=== PATIENT | male | born 1960 | race Caucasian/White ===

== ENCOUNTER 2018-05-28 10:32 | Day surgery (SDC) | payer OTHER ==
[2018-05-27 14:59] VITALS: BMI 34.7
[2018-05-28 12:27] VITALS: TEMP 98.2
[2018-05-28 13:33] VITALS: BP 110/62; PULSE 63
--- NOTE | 2018-05-29 16:58 | PATH ---
Surgical Pathology Report Patient Name: LOREN ROJAS [facility]. Rec. #: [id number] /Age/Gender: 1960 (Age: 57) / M Account: [id number] Location: [facility]-ENDOSCOPY Taken: 05/28/2018 Received: 05/28/2018 Reported: 05/29/2018 Physicians: Wero Yusuf M.D. Specimen(s) Received POLYP RECTOSIGMOID Clinical History Personal history of colon polyps Postoperative diagnosis: Colon polyps Final Diagnosis POLYP FROM RECTOSIGMOID, POLYPECTOMY: HYPERPLASTIC POLYP. Electronically Signed Swapnil Batista M.D. Gross Description Received in formalin, labeled "polyp from rectosigmoid" are 2 rosales, irregular portions of soft tissue measuring 0.3 and 0.4 cm. in greatest dimension. The specimens are submitted in toto in one cassette. /05/28/201805/28/2018
== END 2018-05-28 13:35 | disposition home or self-care (01) ==
LOC: JASU-ENDO 10:32
PROVIDERS: ATTEND Internal Medicine Gastroenterology
PROC: 0DBN8ZX Excision of Sigmoid Colon, Via Natural or Artificial Opening Endoscopic, Diagnostic (ICD-10-PCS; principal; 2018-05-28 11:15)
DX: Z12.11 Encounter for screening for malignant neoplasm of colon (principal); Z86.010 Personal history of colon polyps
CPT/HCPCS: 88305-TC

== ENCOUNTER 2020-03-17 16:02 | Inpatient (IN) | payer OTHER ==
[2020-03-17] MEDS ORDERED: HEPARIN NA (PORCINE) 5,000 UNITS/ML 1ML VIAL SQ ONE (17:20)
[2020-03-17] MEDS ORDERED: HEPARIN NA (PORCINE) 5,000 UNITS/ML 1ML VIAL ONE (18:12)
[2020-03-17] MEDS ORDERED: ENOXAPARIN NA (PORCINE) 100 MG/1 ML DISP.SYRIN SQ ONE (18:32)
[2020-03-17 19:47] LABS: BASO % 0.5 % (0-2.0); HEMATOCRIT 42.5 % (35.4-49); HEMOGLOBIN 14.2 GM/dL (11.7-16.9); MCH 34.9 pg (25.7-33.7); MCHC 33.3 g/dl (32.0-35.9); MEAN CELL VOLUME 104.7 fl (80-96); MEAN PLT VOLUME 9.7 fl (7.5-11.1); MONO % 7.5 % (3.8-10.2); PLATELET COUNT 180 K/MM3 (134-434); RBC 4.06 M/mm3 (4.00-5.60); RDW 14.6 % (11.9-15.9); WHITE BLOOD COUNT 10.9 K/mm3 (4.0-10.0)
[2020-03-17 19:56] LABS: INR 1.44 (0.83-1.09); PROTHROMBIN TIME (PATIENT) 17.5 SEC (9.7-13.0)
[2020-03-17 19:59] LABS: ACTIVATED PTT 39.1 SECONDS (25.2-36.5)
[2020-03-17 20:08] LABS: CALCIUM 8.8 mg/dL (8.5-10.1); POTASSIUM 5.6 mmol/L (3.5-5.1)
[2020-03-17 20:09] LABS: ALBUMIN 3.9 g/dl (3.4-5.0); BLOOD UREA NITROGEN 18.9 mg/dL (7-18)
[2020-03-17 20:12] LABS: CREATININE 0.9 mg/dL (0.55-1.3)
[2020-03-17 20:14] LABS: BILIRUBIN,TOTAL 0.3 mg/dL (0.2-1); TOT PROT 7.1 g/dl (6.4-8.2)
[2020-03-17] MEDS ORDERED: ALBUTEROL SO4 0.083% IH SOL 2.5 MG/3 ML VIAL.NEB. NEB PRN (23:35)
[2020-03-17] MEDS ORDERED: AMMONIUM LACTATE 12% LOTION 225 GM BOTTLE TP SCH (23:45)
[2020-03-17] MEDS ORDERED: PATIENT'S OWN MEDICATION (NON-FORMULARY) (Clobetasol Propionate/Emoll [Clobetasol Emollien TP SCH (23:45)
[2020-03-18] MEDS: ENOXAPARIN NA (PORCINE) 100 MG/1 ML DISP.SYRIN SQ SCH ×3 (01:26→22:59)
[2020-03-18] MEDS ORDERED: oxyCODONE HCL 5 MG TABLET PO SCH (03:00)
[2020-03-18] MEDS: oxyCODONE HCL 5 MG TABLET PO PRN ×2 (03:47→15:56)
[2020-03-18 04:06] VITALS: BMI 34.4
[2020-03-18] MEDS ORDERED: AMMONIUM LACTATE 12% LOTION 225 GM BOTTLE TP SCH (06:00)
[2020-03-18] MEDS ORDERED: OXYCODONE HCL 30 MG PO SCH (06:00)
[2020-03-18] MEDS: INSULIN SLIDING SCALE (NOVOLOG) 1 VIAL SQ SCH ×4 (07:18→22:58)
[2020-03-18 08:47] LABS: INR 1.17 (0.83-1.09); PROTHROMBIN TIME (PATIENT) 14.1 SEC (9.7-13.0)
[2020-03-18 08:48] LABS: ACTIVATED PTT 42.8 SECONDS (25.2-36.5)
[2020-03-18 08:54] LABS: HEMATOCRIT 43.6 % (35.4-49); HEMOGLOBIN 14.8 GM/dL (11.7-16.9); MCH 35.6 pg (25.7-33.7); MEAN CELL VOLUME 104.7 fl (80-96); PLATELET COUNT 178 K/MM3 (134-434); RBC 4.16 M/mm3 (4.00-5.60); RDW 14.8 % (11.9-15.9); WHITE BLOOD COUNT 8.7 K/mm3 (4.0-10.0)
[2020-03-18 09:35] LABS: ALBUMIN 3.8 g/dl (3.4-5.0); BILIRUBIN,TOTAL 0.5 mg/dL (0.2-1); BLOOD UREA NITROGEN 15.2 mg/dL (7-18); CALCIUM 8.6 mg/dL (8.5-10.1); CREATININE 0.8 mg/dL (0.55-1.3); MAGNESIUM 2.6 mg/dL (1.8-2.4); PHOSPHOROUS 4.5 mg/dL (2.5-4.9); POTASSIUM 4.7 mmol/L (3.5-5.1)
[2020-03-18] MEDS ORDERED: METHADONE HCL 10 MG TABLET (FOR DETOX USE ONLY) PO SCH (10:00)
[2020-03-18] MEDS ORDERED: ENOXAPARIN NA (PORCINE) 100 MG/1 ML DISP.SYRIN SQ SCH (10:00)
[2020-03-18] MEDS ORDERED: SERTRALINE HCL 50 MG TABLET (FP) PO SCH (10:00)
[2020-03-18] MEDS ORDERED: PATIENT'S OWN MEDICATION (NON-FORMULARY) (Albuterol Sulfate [Proair Respiclick] 90 MCG Aer IH SCH (10:00)
[2020-03-18] MEDS ORDERED: METHADONE HCL 10 MG TABLET ONE (11:19)
[2020-03-18] MEDS ORDERED: PT OWN MED DRAWER 7, Y5N ONE ×2 (11:20→11:24)
[2020-03-18] MEDS ORDERED: METHADONE HCL 40 MG DISPERSABLE TABLET ONE (11:20)
[2020-03-18] MEDS: METHADONE 40 MG, METHADONE 30 MG PO SCH (11:46)
[2020-03-18] MEDS: AMMONIUM LACTATE 12% LOTION 225 GM BOTTLE TP SCH ×2 (11:47→22:58)
[2020-03-18] MEDS: SERTRALINE HCL 50 MG TABLET (FP) PO SCH (11:48)
[2020-03-18] MEDS: CHOLECALCIFEROL (VIT D3) 400 UNIT (10 MCG) TABLET PO SCH (11:48)
[2020-03-18] MEDS: BICTEGRAV/EMTRICIT/TENOFOV (BIKTARVY) 50-200-25 MG TABLET PO SCH (15:53)
[2020-03-18] MEDS ORDERED: ATORVASTATIN CA 20 MG TABLET (FP) PO SCH (22:00)
[2020-03-19] MEDS: oxyCODONE HCL 5 MG TABLET PO PRN (01:17)
[2020-03-19] MEDS ORDERED: METHADONE HCL 10 MG TABLET ONE (06:36)
[2020-03-19] MEDS ORDERED: METHADONE HCL 40 MG DISPERSABLE TABLET ONE (06:36)
[2020-03-19] MEDS: METHADONE 40 MG, METHADONE 30 MG PO SCH (06:38)
[2020-03-19] MEDS: INSULIN SLIDING SCALE (NOVOLOG) 1 VIAL SQ SCH (06:41)
[2020-03-19] MEDS ORDERED: PT OWN MED DRAWER 7, Y5N ONE (09:31)
[2020-03-19] MEDS: SERTRALINE HCL 50 MG TABLET (FP) PO SCH (09:32)
[2020-03-19] MEDS: CHOLECALCIFEROL (VIT D3) 400 UNIT (10 MCG) TABLET PO SCH (09:33)
[2020-03-19] MEDS: BICTEGRAV/EMTRICIT/TENOFOV (BIKTARVY) 50-200-25 MG TABLET PO SCH (09:33)
[2020-03-19 09:36] LABS: BASO % 0.7 % (0-2.0); EOS % 1.8 % (0-4.5); HEMATOCRIT 43.2 % (35.4-49); HEMOGLOBIN 14.5 GM/dL (11.7-16.9); LYMPH % 12.1 % (8-40); MCH 34.9 pg (25.7-33.7); MCHC 33.6 g/dl (32.0-35.9); MEAN CELL VOLUME 103.9 fl (80-96); MEAN PLT VOLUME 9.4 fl (7.5-11.1); MONO % 8.2 % (3.8-10.2); NEUT % 77.2 % (42.8-82.8); PLATELET COUNT 177 K/MM3 (134-434); RBC 4.16 M/mm3 (4.00-5.60); RDW 14.6 % (11.9-15.9); WHITE BLOOD COUNT 9.3 K/mm3 (4.0-10.0)
[2020-03-19 09:54] VITALS: BP 132/73; PULSE 76; TEMP 98.9
[2020-03-19 10:00] LABS: POTASSIUM 4.2 mmol/L (3.5-5.1)
[2020-03-19 10:08] LABS: ALBUMIN 3.7 g/dl (3.4-5.0); BLOOD UREA NITROGEN 15.4 mg/dL (7-18); CALCIUM 8.4 mg/dL (8.5-10.1)
[2020-03-19 10:09] LABS: MAGNESIUM 2.3 mg/dL (1.8-2.4)
[2020-03-19 10:11] LABS: CREATININE 0.7 mg/dL (0.55-1.3); PHOSPHOROUS 3.9 mg/dL (2.5-4.9)
[2020-03-19 10:13] LABS: BILIRUBIN,TOTAL 0.7 mg/dL (0.2-1); TOT PROT 6.8 g/dl (6.4-8.2)
[2020-03-19] MEDS: ENOXAPARIN NA (PORCINE) 100 MG/1 ML DISP.SYRIN SQ SCH (13:54)
[2020-03-19] MEDS: AMMONIUM LACTATE 12% LOTION 225 GM BOTTLE TP SCH (13:54)
== END 2020-03-19 14:31 | disposition home or self-care (01) | DRG 301 ==
LOC: JER 16:02 → JERBED 18:28 → J6S 03-18 00:24
PROVIDERS: ADMIT Internal Medicine; ATTEND Student in an Organized Health Care Education/Training Program
DX: I82.432 Acute embolism and thrombosis of left popliteal vein (principal); Z21 Asymptomatic human immunodeficiency virus [HIV] infection status; F11.90 Opioid use, unspecified, uncomplicated; I25.10 Atherosclerotic heart disease of native coronary artery without angina pectoris; G47.33 Obstructive sleep apnea (adult) (pediatric); B19.20 Unspecified viral hepatitis C without hepatic coma; J44.9 Chronic obstructive pulmonary disease, unspecified; M54.5 Low back pain; F17.210 Nicotine dependence, cigarettes, uncomplicated; F41.9 Anxiety disorder, unspecified; E66.9 Obesity, unspecified; Z68.34 Body mass index [BMI] 34.0-34.9, adult; M81.0 Age-related osteoporosis without current pathological fracture; Z95.5 Presence of coronary angioplasty implant and graft; Z99.81 Dependence on supplemental oxygen; Z96.643 Presence of artificial hip joint, bilateral; Z86.711 Personal history of pulmonary embolism
CPT/HCPCS: 36415; 70450-TC; 71046-TC-FY; 80053; 82962; 83036; 83735; 84100; 84132; 85025; 85027; 85610; 85730; 93005; 93010; 93971-TC; 99285-25; C9803; G0463-25; J1644; U0003

== ENCOUNTER 2023-02-15 04:43 | Day surgery (SDC) | payer OTHER ==
[2023-02-13 15:48] VITALS: BMI 33.2
[2023-02-15 11:31] VITALS: TEMP 97.8
[2023-02-15 11:41] VITALS: PULSE 81
[2023-02-15 11:43] VITALS: BP 121/78; RESP 18
== END 2023-02-15 12:00 | disposition home or self-care (01) ==
LOC: JASU-ENDO 04:43
PROVIDERS: ATTEND Internal Medicine Gastroenterology
PROC: 0DBL8ZX Excision of Transverse Colon, Via Natural or Artificial Opening Endoscopic, Diagnostic (ICD-10-PCS; 2023-02-15)
PROC: 0DBM8ZX Excision of Descending Colon, Via Natural or Artificial Opening Endoscopic, Diagnostic (ICD-10-PCS; principal; 2023-02-15 10:00)
DX: D12.3 Benign neoplasm of transverse colon (principal); D12.4 Benign neoplasm of descending colon; Z86.010 Personal history of colon polyps
CPT/HCPCS: 88305-TC

== ENCOUNTER 2024-07-15 09:38 | Day surgery (SDC) | payer OTHER ==
[2024-07-11 16:44] VITALS: BMI 31.8
[2024-07-15 10:37] VITALS: RESP 18
[2024-07-15] MEDS ORDERED: MIDAZOLAM HCL 2 MG/2 ML SINGLE DOSE VIAL ONE (11:20)
[2024-07-15] MEDS ORDERED: PROPOFOL 40 ML ONE (11:20)
[2024-07-15] MEDS ORDERED: ONDANSETRON 4 MG/2 ML VIAL IVPUSH PRN (11:33)
[2024-07-15] MEDS ORDERED: POVIDONE-IODINE 5% OPHTHALMIC PREP 30 ML SOLUTION ONE (11:44)
[2024-07-15] MEDS ORDERED: ERYTHROMYCIN 0.5% OPHTHALMIC OINTMENT 3.5 GM TUBE ONE (11:44)
[2024-07-15] MEDS ORDERED: TETRACAINE 0.5% OPHTH SOLN 2 ML BOTTLE ONE (11:44)
[2024-07-15] MEDS ORDERED: ceFAZolin SODIUM 1 GM VIAL ONE ×2 (11:44→12:19)
[2024-07-15] MEDS ORDERED: BUPIVACAINE HCL/PF 0.5% (5MG/ML) 10 ML VIAL ONE (11:44)
[2024-07-15] MEDS ORDERED: LIDOCAINE 1%/EPI 1:100000 (20 ML MULTI DOSE VIAL) ONE (11:44)
[2024-07-15] MEDS ORDERED: LACTATED RINGERS SOLUTION 1,000 ML IV SCH (11:45)
[2024-07-15] MEDS ORDERED: ACETAMINOPHEN INJECTION 100 ML ONE (11:56)
[2024-07-15] MEDS ORDERED: LIDOCAINE HCL/PF 2% SDV 5ML VIAL ONE (12:11)
[2024-07-15] MEDS ORDERED: ONDANSETRON 4 MG/2 ML VIAL ONE (12:26)
[2024-07-15] MEDS ORDERED: DEXAMETHASONE SOD PHOSPHATE 4 MG/1 ML VIAL ONE (12:26)
[2024-07-15] MEDS ORDERED: oxyCODONE HCL 5 MG TABLET ONE (14:51)
[2024-07-15] MEDS: oxyCODONE HCL 5 MG TABLET PO PRN (14:55)
[2024-07-15 15:42] VITALS: BP 126/74; PULSE 77; TEMP 98
== END 2024-07-15 15:40 | disposition home or self-care (01) ==
LOC: FASU 09:38
PROVIDERS: ATTEND Ophthalmology
PROC: 0KX10ZZ Transfer Facial Muscle, Open Approach (ICD-10-PCS; 2024-07-15)
PROC: 08SR0ZZ Reposition Left Lower Eyelid, Open Approach (ICD-10-PCS; principal; 2024-07-15 12:35)
DX: C44.1192 Basal cell carcinoma of skin of left lower eyelid, including canthus (principal)
CPT/HCPCS: 94760; J0131